=== PATIENT | female | born 1975 | race Caucasian/White ===

== ENCOUNTER 2017-09-10 22:54 | Emergency (ER) | payer MEDICAID ==
[~2017-09-10] VITALS: Ht 170.2 cm; Wt 75.7 kg
[2017-09-10 23:02] VITALS: BP 141/87
--- NOTE | 2017-09-10 23:15 | ER.PDOC ---
General Chief Complaint: Allergic Reaction Stated Complaint: DIZZY Time seen by MD: 23:12 Source: patient History of Present Illness Initial Comments 42 year old white female with substernal chest pain. Started less than an hour ago 15 minutes after he took Bromfed. Thinks that the pseudoephedrine component threw her to arrhythmia. No fever. No chills. No shortness of breath. Timing/Duration: 1 hour Severity/Quality: moderate Radiation: no radiation Activities at Onset: rest Prior CP/Workup: Cardiac Cath, Cardiolye Scan, Echocardiography Nitro Today/Relief: No Nitro Taken Today Aspirin Today: No Aspirin Today Associated Symptoms: denies symptoms Allergies: Coded Allergies: Benzodiazepines (Verified Allergy, Severe, Anaphylaxis Shock, 09/10/17) egg (Verified Allergy, Severe, Anaphylaxis Shock, 09/10/17) morphine (Verified Allergy, Severe, Anaphylaxis Shock, 09/10/17) Sulfa (Sulfonamide Antibiotics) (Verified Allergy, Intermediate, Rash, 04/19) desipramine (Verified Allergy, Intermediate, 09/10/17) ofloxacin (Verified Allergy, Intermediate, Rash, 09/10/17) phenytoin (Verified Allergy, Intermediate, Hives, 09/10/17) povidone-iodine (Verified Allergy, Intermediate, Headache, 09/10/17) soap (Verified Allergy, Intermediate, Headache, 09/10/17) sumatriptan (Verified Allergy, Intermediate, Hives, 09/10/17) Past Medical History Medical History: CVA/TIA/stroke, cardiac problems Surgical History: cardiac cath, appendectomy, cholecystectomy, knee, other ( recent cardiac nuclear study was normal) LMP (females 10-50): last week Social History Smoking: greater than 1 pack/day Alcohol Use: occassionally Drug Use: none Constitutional: no symptoms reported EENTM: no symptoms reported Respiratory: no symptoms reported Cardiovascular: see HPI Gastrointestinal: no symptoms reported Genitourinary: no symptoms reported Musculoskeletal: no symptoms reported Skin: no symptoms reported Psychiatric/Neurological: no symptoms reported Endocrine: no symptoms reported Hematologic/Lymphatic: no symptoms reported Physical Exam General Appearance: No Apparent Distress, WD/WN HEENT: PERRL/EOMI, Normal ENT Inspection, TMs Normal, Pharynx Normal Neck: Non-Tender, Full Range of Motion, Supple, Normal Inspection Respiratory: chest non-tender, lungs clear, normal breath sounds, no respiratory distress, no accessory muscle use Cardiovascular: Normal Peripheral Pulses, Regular Rate, Rhythm, No Edema, No Gallop, No JVD, No Murmur Gastrointestinal: Normal Bowel Sounds, No Organomegaly, No Pulsatile Mass, Non Tender, Soft Rectal: Normal Exam Extremities: Normal Range of Motion, Non-Tender, Normal Inspection, No Pedal Edema, No Calf Tenderness, Normal Capillary Refill Neurologic/Psychiatric: forest aide II-XII NML as Tested, No Motor/Sensory Deficits, Alert, Normal Mood/Affect, Oriented x 3 Skin: Normal Color, Warm/Dry Lymphatic: No Adenopathy Progress Progress No abnormal heart rhythm noted on monitor Departure Time of Disposition: 00:06 Disposition: 01 HOME, SELF-CARE Impression: Primary Impression: Adverse drug reaction Additional Impression: Chest pain Condition: Stable Referrals: MENDY OROURKE NUT PROCESS HELPER (PCP) PRIMARY CARE PROVIDER Comments D/C Bromfed DM Use Claritin instead (OTC) RTER prn follow up PCP Duration or Time Spent with Pa: 30 Problem Qualifiers Primary Impression: Adverse drug reaction Encounter type: initial encounter Qualified Codes: T88.7XXA - Unspecified adverse effect of drug or medicament, initial encounter Additional Impression: Chest pain Chest pain type: unspecified Qualified Codes: R07.9 - Chest pain, unspecified CHERYL VERMA MD Sep 10, 2017 23:15
--- NOTE | 2017-09-10 23:27 | PCM.EKG ---
[facility] Test Date: 2017-09-10 Test Time: 23:19:31 Pat Name: OLY WILD Department: Room: Gender: F Recovery Agent: NURYS : 1975 Requested By: CHERYL VERMA Order Number: [id number] Reading MD: Measurements Intervals [place] Rate: 83 P: 71 ID: [id number] QRS: 93 QRSD: 120 T: 67 QT: 386 QTc: 453 Interpretive Statements Normal sinus rhythm Right bundle branch block Abnormal ECG No previous ECG available for comparison Please click the below link to view image of tracing.
[2017-09-10 23:30] LABS: BASOPHIL # 0.1 10^3/uL (0.0-0.1); BASOPHIL % 0.5 % (0.0-0.2); EOSINOPHIL # 0.3 10^3/uL (0.0-0.2); EOSINOPHIL % 2.3 % (0.0-5.0); HEMOGLOBIN 13.6 g/dL (12.0-15.0); LYMPHOCYTES # 3.2 10^3/uL (1.0-4.8); LYMPHOCYTES % 27.9 % (24.0-44.0); MEAN CELL HGB CONCENTRATION 33.5 g/dL (33-37); MEAN CORP VOLUME 89.6 fL (78-100); MEAN PLATELET VOLUME 10.3 fL (7.8-11.0); MONOCYTES % 8.4 % (5.0-12.0); NEUTROPHILS % 60.6 % (41.0-85.0); RED CELL DISTRIBUTION WIDTH 13.5 % (11.5-14.5); WHITE BLOOD CELL 11.5 10^3/uL (4.5-11.0)
--- NOTE | 2017-09-10 23:39 | DIREP ---
PROCEDURE:CHEST 1 VIEW COMPARISON:None. INDICATIONS:chest pain FINDINGS: LUNGS/PLEURA:No significant pulmonary parenchymal abnormalities. No effusions. VASCULATURE:Normal. Unremarkable pulmonary vasculature. CARDIAC:Normal. No cardiac silhouette abnormality or cardiomegaly. MEDIASTINUM:Normal. No visible mass or adenopathy. BONES:Normal. No fracture or visible bony lesion. OTHER:Negative. CONCLUSION:Negative exam Dictated by: Tanner Huff M.D. on 09/10/2017 at 11:37 PM
[2017-09-10 23:54] LABS: ALANINE AMINOTRANSFERASE(ML) 23 U/L (12-78); ALKALINE PHOSPHATASE 90 U/L (50-136); ASPARTATE AMINO TRANSFERASE 17 U/L (0-35); CALCIUM 8.7 mg/dL (8.4-10.5); CARBON DIOXIDE 21.9 mmol/L (20.0-32); GLUCOSE 95 mg/dL (70-110)
[2017-09-11 00:18] VITALS: BP 147/86
--- NOTE | 2017-09-11 00:20 | NUR ---
DISCHARGE WENT TO DISCHARGE PATIENT, PATIENT UNHAPPY WITH DIAGNOSES. STATES "IT DOESN'T MAKE SENSE" I ASKED PATIENT IF SHE WOULD LIKE TO SPEAK TO THE PHYSICIAN AGAIN, PATIENT STATED,"NO, I'M DONE HERE"
== END 2017-09-11 00:17 | disposition home or self-care (01) ==
LOC: ER 22:54
DX: R07.9 Chest pain, unspecified (principal); T50.995A Adverse effect of other drugs, medicaments and biological substances, initial encounter; F17.210 Nicotine dependence, cigarettes, uncomplicated; Z90.49 Acquired absence of other specified parts of digestive tract; Z98.890 Other specified postprocedural states; Z86.73 Personal history of transient ischemic attack (TIA), and cerebral infarction without residual deficits; Z88.5 Allergy status to narcotic agent; Z79.899 Other long term (current) drug therapy; Y92.89 Other specified places as the place of occurrence of the external cause
CPT/HCPCS: 36415; 71045; 80053; 82550; 82553; 83880; 84484; 85025; 85610; 85730; 93005; 99285

== ENCOUNTER 2017-11-10 14:38 | Emergency (ER) | payer MEDICAID ==
[~2017-11-10] VITALS: Ht 170.2 cm; Wt 76.2 kg
[2017-11-10 14:52] VITALS: BP 141/87
--- NOTE | 2017-11-10 14:53 | NUR ---
ARRIVAL PATIENT ARRIVED TO ED5 VIA CRUTCHES WITH FAMILY, C/O OF RIGHT FOOT PAIN TODAY, PATIENT STATES SHE WAS LIFTING A HEAVY DOG HOUSE AND THE HOUSE FELL ON HER FOOT, CAME TO ED FOR FURTHER EVAL.
--- NOTE | 2017-11-10 15:23 | ER.PDOC ---
General Chief Complaint: Extremities Stated Complaint: INJURED FOOT Time seen by MD: 15:20 Source: patient Exam Limitations: no limitations History of Present Illness Initial Comments Right foot pain today. Log fell on it. Onset: just prior to arrival Where: home Severity: moderate Modifying Factors: pain on movement Allergies: Coded Allergies: Benzodiazepines (Verified Allergy, Severe, Anaphylaxis Shock, 09/10/17) egg (Verified Allergy, Severe, Anaphylaxis Shock, 09/10/17) morphine (Verified Allergy, Severe, Anaphylaxis Shock, 09/10/17) Sulfa (Sulfonamide Antibiotics) (Verified Allergy, Intermediate, Rash, 04/19) desipramine (Verified Allergy, Intermediate, 09/10/17) ofloxacin (Verified Allergy, Intermediate, Rash, 09/10/17) phenytoin (Verified Allergy, Intermediate, Hives, 09/10/17) povidone-iodine (Verified Allergy, Intermediate, Headache, 09/10/17) soap (Verified Allergy, Intermediate, Headache, 09/10/17) sumatriptan (Verified Allergy, Intermediate, Hives, 09/10/17) Past Medical History Medical History: CVA/TIA/stroke, cardiac problems Surgical History: appendectomy, cholecystectomy, knee, tubal Social History Smoking: non-smoker Alcohol Use: none Drug Use: none Review of Systems Constitutional: no symptoms reported EENTM: no symptoms reported Respiratory: no symptoms reported Cardiovascular: no symptoms reported Gastrointestinal: no symptoms reported Musculoskeletal: see HPI All Other Systems: Reviewed and Negative Physical Exam General Appearance: Alert, No Apparent Distress Foot: tenderness (right) Ankle: nml inspection, tenderness (right) Gait: normal Neuro: sensation nml, motor nml Vascular: no vascular compromise Tendons: tendon function nml Leg/Knee/Thigh: uninjured above ankle Head/ENT: nml inspection, pharynx nml Neck/Back: nml inspection, non-tender Resp/CVS: no resp distress Abdomen: non-tender, no organomegaly Results/Orders Results/Orders Administered Medications Medications (Trade) Dose Ordered Sig/Essie Route PRN Reason Start Time Stop Time Status Last Admin Dose Admin Ketorolac Tromethamine (Toradol) 60 mg STAT STAT IM 11/10/17 15:34 11/10/17 15:36 DC 11/10/17 15:41 EKG/XRAY/CT/US XRAY Comments: No fracture of right foot Departure Time of Disposition: 16:07 Disposition: 01 HOME, SELF-CARE Impression: Primary Impression: Contusion of foot, right Condition: Stable Referrals: MENDY OROURKE ASSOCIATE FINANCIAL ANALYST (PCP) PRIMARY CARE PROVIDER Additional Instructions: Ice Ibuprofen F/U with Dr. Hager as needed Duration or Time Spent with Pa: 50 mins Problem Qualifiers Primary Impression: Contusion of foot, right Encounter type: initial encounter Qualified Codes: S90.31XA - Contusion of right foot, initial encounter NIGEL HICKS MD Nov 10, 2017 15:22
[2017-11-10] MEDS ORDERED: TORADOL IM STA (15:34)
[2017-11-10] MEDS ORDERED: TORADOL ONE (15:36)
--- NOTE | 2017-11-10 15:42 | DIREP ---
PROCEDURE:XRAY FOOT MIN 3 VWS-RT COMPARISON:None. INDICATIONS:pain FINDINGS: BONES:No visible fracture. Early calcaneal spurring. JOINTS:No dislocation. OTHER:No obvious soft tissue swelling/changes. CONCLUSION: 1. No evidence of acute fracture. Consider MRI if the patient is unable to weight-bear or pain and/or mobility do not improve. Dictated by: Ry Caro M.D. on 11/10/2017 at 03:39 PM
--- NOTE | 2017-11-10 15:43 | DIREP ---
PROCEDURE:XRAY ANKLE MIN 3VWS-RT COMPARISON:None. INDICATIONS:pain FINDINGS: BONES:Right calcaneal spurs. JOINTS:Normal. SOFT TISSUES:Normal. OTHER:No additional findings. CONCLUSION:No acute bony abnormality. Dictated by: Amanda Mackey MD on 11/10/2017 at 03:40 PM
[2017-11-10 16:10] VITALS: BP 137/87
[2017-11-10 16:14] VITALS: BP 141/87
== END 2017-11-10 16:13 | disposition home or self-care (01) ==
LOC: ER 14:38
DX: S90.31XA Contusion of right foot, initial encounter (principal); Z86.73 Personal history of transient ischemic attack (TIA), and cerebral infarction without residual deficits; Z88.2 Allergy status to sulfonamides; Z88.5 Allergy status to narcotic agent; Z90.49 Acquired absence of other specified parts of digestive tract; Z91.012 Allergy to eggs; Z88.8 Allergy status to other drugs, medicaments and biological substances; Z98.51 Tubal ligation status; W20.1XXA Struck by object due to collapse of building, initial encounter; Y93.89 Activity, other specified; Y92.098 Other place in other non-institutional residence as the place of occurrence of the external cause; Y99.8 Other external cause status
CPT/HCPCS: 73610; 73630; 96372; 99284; J1885